=== PATIENT | female | born 1950 | race Caucasian/White ===

== ENCOUNTER → 2019-08-23 | Outpatient (CLI) | payer MEDICARE, OTHER ==
--- NOTE | 2019-08-23 09:00 | Diagnostic Imaging Report ---
PROCEDURE: MRI lumbar spine. TECHNIQUE: Multiplanar, multisequence MRI of the lumbar spine was performed without contrast. DATE: August 23, 2019. COMPARISON: MR lumbar spine September 18, 2015. INDICATION: 69-year-old female, low back pain. FINDINGS: There is grade 1 anterolisthesis of L4 on L5 measuring approximately 4 mm. There is no evidence of a diffuse marrow infiltrating or replacing process. There is no identified focal concerning bone lesion. There is no compression deformity. There is mild disc height loss at L4-L5 with adjacent Modic endplate degenerative related changes. The additional disc heights are well preserved. The visualized cord and conus medullaris is unremarkable and terminates at the L1-L2 level. L1-L2: There is no disc bulge. The facet joints and ligamentum flavum are unremarkable. There is no foraminal narrowing. There is no spinal canal stenosis. L2-L3: There is no disc bulge. The facet joints and ligamentum flavum are unremarkable. There is no foraminal narrowing. There is no spinal canal stenosis. L3-L4: There is no disc bulge. There are mild to moderate bilateral facet degenerative changes without ligamentum flavum hypertrophy. There is no foraminal narrowing. There is no spinal canal stenosis. L4-L5: There is diffuse disc bulge. There is a small left paracentral disc extrusion. There are severe facet degenerative changes without prominent ligamentum flavum hypertrophy. There are right-sided laminotomy changes. There is severe left and moderate right foraminal narrowing. There is no high-grade spinal canal stenosis. L5-S1: There is no disc bulge. There are moderate bilateral facet degenerative changes. There is no foraminal narrowing. There is no spinal canal stenosis. IMPRESSION: 1. L4-L5 diffuse disc bulge with superimposed small left paracentral disc extrusion. There is also severe facet degenerative change at this level. There are right-sided laminotomy changes. There is severe left and moderate right foraminal narrowing at this level without high-grade spinal stenosis. The degree of neural foraminal narrowing at this level is increased since September 18, 2015. 2. Grade 1 anterolisthesis of L4 on L5. Dictated by: Dictated on workstation # [id number]
== END ==
LOC: RAD 07:57
PROVIDERS: ATTEND Physician Assistant
DX: M51.26 Other intervertebral disc displacement, lumbar region (principal); M48.061 Spinal stenosis, lumbar region without neurogenic claudication; M43.16 Spondylolisthesis, lumbar region
CPT/HCPCS: 72148